=== PATIENT | male | born 1970 | race Caucasian/White ===

== ENCOUNTER 2023-03-27 17:50 | Emergency (ER) | payer BC, OTHER ==
[2023-03-27] MEDS ORDERED: Lidocaine 2% with EPINEPHrine 1:200,000 20 ML SDV INJECT ONE (18:36)
[2023-03-27] MEDS ORDERED: Bacitracin/Neomycin/Polymyxin B Oint 0.9 GM U/D Packet ONE (18:36)
[2023-03-27] MEDS ORDERED: Bacitracin/Neomycin/Polymyxin B Oint 0.9 GM U/D Packet TOP ONE (18:37)
[2023-03-27] MEDS ORDERED: Cephalexin 250 MG Cap ONE (19:02)
[2023-03-27] MEDS ORDERED: Cephalexin 250 MG Cap PO ONE ×2 (19:04→19:05)
== END 2023-03-27 19:10 | disposition home or self-care (01) ==
LOC: KA.ED 17:50
DX: S71.111A Laceration without foreign body, right thigh, initial encounter (principal); I10 Essential (primary) hypertension; Z88.0 Allergy status to penicillin; W29.3XXA Contact with powered garden and outdoor hand tools and machinery, initial encounter; Z79.899 Other long term (current) drug therapy
CPT/HCPCS: 12004; 99284-25; A9270-GY; J3490